=== PATIENT | female | born 1995 | race Caucasian/White ===

== ENCOUNTER 2023-05-15 06:35 | Inpatient (IN) | payer BC ==
[~2023-05-15 06:35] MED LIST: Lidocaine 1% 10 ML MDV ONE
[2023-05-15] MEDS ORDERED: Calcium Carbonate 500 MG Tab.Chew PO PRN (07:16)
[2023-05-15] MEDS ORDERED: Ondansetron 4 MG/2 ML SDV IVPUSH PRN (07:16)
[2023-05-15] MEDS ORDERED: Acetaminophen 325 MG Tab PO PRN ×2 (07:16→12:43)
[2023-05-15] MEDS ORDERED: Nalbuphine 10 MG/0.5 ML Syringe IVPUSH PRN (07:16)
[2023-05-15] MEDS ORDERED: Lidocaine 1% 50 ML MDV INJECT ONE (07:19)
[2023-05-15] MEDS ORDERED: Oxytocin/Lactated Ringers 10 UNIT/1,000 ML BAG IV SCH ×2 (07:30)
[2023-05-15] MEDS: Lactated Ringers 1,000 ML IV SCH ×3 (07:43→10:38)
[2023-05-15 07:49] LABS: BASOPHILS ABSOLUTE AUTO 0.01 K/mm3 (0.01-0.08); BASOPHILS PERCENT AUTO 0.1 % (0.1-1.2); EOSINOPHILS ABSOLUTE AUTO 0.03 K/mm3 (0.04-0.36); EOSINOPHILS PERCENT AUTO 0.2 (0.7-5.8); HEMATOCRIT 41.7 % (34.1-44.9); HEMOGLOBIN 14.6 gm/dl (11.2-15.7); IMMATURE GRAN ABSOLUTE AUTO 0.03 K/mm3 (0.00-0.10); IMMATURE GRAN PERCENT AUTO 0.2 % (<=1.0); LYMPHOCYTES ABSOLUTE AUTO 1.87 K/mm3 (1.18-3.74); LYMPHOCYTES PERCENT AUTO 14.3 % (19.3-51.7); MEAN CORPUSCULAR HEMOGLOBIN 33.2 pg (25.6-32.2); MEAN CORPUSCULAR VOLUME 94.8 fl (79.4-94.8); MEAN PLATELET VOLUME 10.1 fl (9.4-12.3); MONOCYTES PERCENT AUTO 4.6 % (4.7-12.5); NEUTROPHILS ABSOLUTE AUTO 10.55 K/mm3 (1.56-6.13); NEUTROPHILS PERCENT AUTO 80.6 % (34.0-71.1); PLATELET COUNT,PLT 202 K/mm3 (182-369); WHITE BLOOD CELL COUNT,WBC 13.09 K/mm3 (3.98-10.04)
[2023-05-15] MEDS ORDERED: Bupivacaine/fentaNYL/NS 100 ML Bag EPIDUR PRN (07:53)
[2023-05-15] MEDS ORDERED: diphenhydrAMINE 50 MG/ML SDV IVPUSH PRN (07:53)
[2023-05-15] MEDS ORDERED: fentaNYL 100 MCG/2 ML SDV EPIDUR PRN (07:53)
[2023-05-15] MEDS ORDERED: ePHEDrine 50 MG/ML SDV IVPUSH PRN (07:53)
[2023-05-15] MEDS ORDERED: Benzocaine/Menthol 20%-0.5% Spray 78 GM Cannister TOP PRN (12:43)
[2023-05-15] MEDS ORDERED: Witch Hazel Medicated Pads 40/Jar TOP PRN (12:43)
[2023-05-15] MEDS ORDERED: Docusate Sodium 100 MG Cap PO PRN (12:43)
[2023-05-15] MEDS: Ibuprofen 600 MG Tab PO PRN (17:02)
[2023-05-16] MEDS: Ibuprofen 600 MG Tab PO PRN ×3 (04:28→20:32)
[2023-05-17] MEDS: Ibuprofen 600 MG Tab PO PRN ×2 (04:48→10:45)
[2023-05-17 09:19] VITALS: BP 108/72; PULSE 73
== END 2023-05-17 11:15 | disposition home or self-care (01) | DRG 560 ==
LOC: JD.OBCHECK 06:35 → JD.OB 06:40 → JD.OBCHECK 07:16 → OBSVTOIN 12:32 → JD.OB 12:45
PROVIDERS: ADMIT Obstetrics & Gynecology; ATTEND Obstetrics & Gynecology
PROC: 10E0XZZ Delivery of Products of Conception, External Approach (ICD-10-PCS; principal; 2023-05-15)
PROC: 10907ZC Drainage of Amniotic Fluid, Therapeutic from Products of Conception, Via Natural or Artificial Opening (ICD-10-PCS; 2023-05-15)
PROC: 3E0R3BZ Introduction of Anesthetic Agent into Spinal Canal, Percutaneous Approach (ICD-10-PCS; 2023-05-15)
PROC: 00HU33Z Insertion of Infusion Device into Spinal Canal, Percutaneous Approach (ICD-10-PCS; 2023-05-15)
DX: O45.93 Premature separation of placenta, unspecified, third trimester (principal); Z3A.38 38 weeks gestation of pregnancy; Z37.0 Single live birth; Z79.899 Other long term (current) drug therapy
CPT/HCPCS: 36415; 51702; 59025; 59409; 85025; 86592; 86850; 86900; 86901; A9270-GY; J2590; J3010; J3490; J7120